=== PATIENT | female | born 1950 | race Caucasian/White ===

== ENCOUNTER → 2018-08-14 | Outpatient (CLI) | payer MEDICARE, BC ==
--- NOTE | 2018-08-15 18:16 | BD ---
EXAMINATION TYPE: Axial Bone Density DATE OF EXAM: 08/14/2018 COMPARISON: NONE CLINICAL HISTORY: 68-year-old female other specified disorders of bone density, postmenopausal screen ing Height: 63 Weight: 139.3 FRAX RISK QUESTIONS: Alcohol (3 or more units per day): no Family History (Parent hip fracture): no Glucocorticoids (More than 3mos): no (Ex: prednisone, prednisolone, methylprednisolone, dexamethasone, and hydrocortisone). History of Fracture in Adulthood: yes Secondary Osteoporosis: 1. Type 1 Diabetes: no 2. Hyperthyroidism: no 3. Menopause before 45: no 4. Malnutrition: no 5. Chronic liver disease: no Rheumatoid Arthritis: no Current Tobacco Use: no RISK FACTORS HISTORY OF: History of Wrist Fracture: When: Family History of Osteoporosis: no Active: yes Diet low in dairy products/other sources of calcium: yes Postmenopausal woman: angus age 45 Lost more than 2 inches in height since high school: no MEDICATIONS: Crestor, lisinopril, diuretic, folic acid, potassium Thyroid Medications: levothyroxine How Lon years Additional History: EXAM MEASUREMENTS: Bone mineral densitometry was performed using the [employer] System. Bone mineral density as measured about the Lumbar spine is: ----- L1-L4(G/cm2): 1.526 T Score Values are as follows: ----- L2: 1.8 ----- L3: 4.1 ----- L4: 4.0 ----- L1-L4: 2.9 Bone mineral density : baseline Bone mineral density about the R hip (g/cm2): 0.808 Bone mineral density about the L hip (g/cm2): 0.899 T Score values are as follows: -----R Neck: -1.7 -----L Neck: -1.0 -----R Total: -0.5 -----L Total: -0.1 Bone mineral density : baseline IMPRESSION: Osteopenia (T Score between -2.5 and -1). There is slightly increased risk of fracture and the patient may be considered for treatment. Re-Screen 2-5 years. NOTE: T-SCORE=SD OF THE YOUNG ADULT MEAN.
== END ==
LOC: RADBDWWP 12:57
PROVIDERS: ATTEND Family Medicine
DX: M85.80 Other specified disorders of bone density and structure, unspecified site (principal)
CPT/HCPCS: 77080

== ENCOUNTER → 2019-05-09 | Outpatient (CLI) | payer MEDICARE, BC ==
--- NOTE | 2019-05-10 12:52 | MM ---
Reason for exam: screening (asymptomatic). Last mammogram was performed 1 year and 2 months ago. History: Patient is postmenopausal. Family history of premenopausal breast cancer in paternal aunt at age 50. Reductions of both breasts, 1990. Physical Findings: A clinical breast exam by your physician is recommended on an annual basis and results should be correlated with mammographic findings. MG 3D Screening Mammo W/Cad Bilateral CC and MLO view(s) were taken. Prior study comparison: February 22, 2018, mammogram. December 30, 2016, mammogram. There are scattered fibroglandular densities. No significant changes when compared with prior studies. ASSESSMENT: Negative, BI-RAD 1 RECOMMENDATION: Routine screening mammogram of both breasts in 1 year.
== END | disposition home or self-care (01) ==
LOC: RADMAMWWP 13:11
PROVIDERS: ATTEND Family Medicine
DX: Z12.31 Encounter for screening mammogram for malignant neoplasm of breast (principal)
CPT/HCPCS: 77063; 77067

== ENCOUNTER → 2022-04-29 | Outpatient (CLI) | payer MEDICARE, BC ==
--- NOTE | 2022-05-01 12:13 | MM ---
Reason for Exam: Screening (asymptomatic). Last mammogram was performed 3 year(s) and 0 month(s) ago. Patient History: Menarche at age 14. First Full-Term at age 19. Postmenopausal. 1990, Bilateral Reduction. Paternal aunt had breast cancer, age 50. Risk Values: Alyson 5 year model risk: 1.4%. NCI Lifetime model risk: 3.8%. Prior Study Comparison: 12/30/2016 Screening Mammogram, Unknown. 02/22/2018 Screening Mammogram, Unknown. 05/09/2019 Bilateral Screening Mammogram, [facility]. Tissue Density: There are scattered fibroglandular densities. Findings: Analyzed By CAD. There is no suspicious group of microcalcifications or new suspicious mass in either breast. Overall Assessment: Negative, BI-RAD 1 Management: Screening Mammogram of both breasts in 1 year. 1. Patient should continue monthly self breast exams. 2. A clinical breast exam by your physician is recommended on an annual basis and results should be correlated with mammographic findings. A negative mammogram should not preclude additional follow-up of suspicious palpable abnormalities. Electronically signed and approved by: Wenceslao Gorman M.D. Radiologist
== END | disposition home or self-care (01) ==
LOC: RADMAMWWP 13:04
PROVIDERS: ATTEND Family Medicine
DX: Z12.31 Encounter for screening mammogram for malignant neoplasm of breast (principal); Z78.0 Asymptomatic menopausal state; Z80.3 Family history of malignant neoplasm of breast
CPT/HCPCS: 77063; 77067

== ENCOUNTER → 2022-04-29 | Outpatient (CLI) | payer MEDICARE, BC ==
--- NOTE | 2022-04-29 16:01 | XR ---
EXAMINATION TYPE: XR shoulder complete LT DATE OF EXAM: 04/29/2022 COMPARISON: NONE INDICATION: Shoulder pain TECHNIQUE: 3 views of the left shoulder FINDINGS: Moderate degenerative changes of the left acromioclavicular joint. [id number] degenerative you ges of the glenohumeral articulation with inferior glenoid osteophytosis. No definite acute fracture line identified. No humeral head dislocation or significant subluxation. N o signs of rotator cuff calcific tendinitis. Maintained acromiohumeral distance. IMPRESSION: Degenerative changes as described above.
--- NOTE | 2022-04-29 16:06 | XR ---
EXAMINATION TYPE: XR cervical spine comp DATE OF EXAM: 04/29/2022 COMPARISON: NONE INDICATION: Neck pain and radiculopathy TECHNIQUE: 5 views of the cervical spine FINDINGS: Retrolisthesis of C4 over C5 and C5 over C6. Severe degenerative changes of the cervical spine with m ultilevel opposing endplate osteophytosis, degenerated discs and uncovertebral osteoarthropathy, most evident at C4-5, C5-6 and C6-7 levels. Multiple facet osteoarthropathy and neural foramina stenosis are also noted. No definite vertebral leno dy collapse. Unremarkable prevertebral soft tissue. Unremarkable atlantoaxial articulations. IMPRESSION: Advanced degenerative changes of the cervical spine as detailed above. Recommend further MRI assessme nt.
== END | disposition home or self-care (01) ==
LOC: RADXRMAIN 11:48
PROVIDERS: ATTEND Family Medicine
DX: M19.012 Primary osteoarthritis, left shoulder (principal); M47.22 Other spondylosis with radiculopathy, cervical region; M99.71 Connective tissue and disc stenosis of intervertebral foramina of cervical region
CPT/HCPCS: 72050

== ENCOUNTER → 2022-05-26 | Outpatient (CLI) | payer MEDICARE, BC ==
--- NOTE | 2022-05-26 12:44 | MR ---
MRI CERVICAL SPINE: CLINICAL HISTORY: Cervical spine x-ray April 29, 2022 TECHNIQUE: Multiplanar, multisequence imaging of the cervical spine is performed without IV contrast. COMPARISON: Cervical spine x-ray April 29, 2022. FINDINGS: Sagittal images of the cervical spine show the craniocervical junction to appear within nor mal limits. There is focus of increased signal in the cervical spinal cord at C4-C5 level sagittal im age 9. There is grade 1 retrolisthesis C4 on C5 and C5 on C6. Moderate to severe spurring and disc sp elvia narrowing at these levels is present. Mild to moderate disc space narrowing and moderate spurring C6-C7 level. The vertebral body heights are normal. Heterogeneous Modic type I and III degenerative changes mid cervical spine are present. Axial images at C2-C3 level shows uncovertebral facet degenerative changes causing asymmetric moderat e left-sided neural foraminal narrowing. Axial images at C3-C4 level shows broad-based left paracentral spur disc complex effacing the anterol ateral thecal sac with mild to moderate bilateral neural foraminal narrowing. Axial images at C4-C5 level shows spondylolisthesis with posterior spur disc complex effacing anterio r thecal sac. The ventral surface of the left spinal cord and uncovertebral facet degenerative change s. There is advanced bilateral neural foraminal narrowing. There is some increased cord signal centra lly axial image 24. Axial images at C5-C6 levels show subtle spondylolisthesis and mild right paracentral disc protrusion , there is uncovertebral facet degenerative changes causing moderate to advanced bilateral neural for aminal narrowing. Axial images at C6-C7 level show focal central disc protrusion effacing anterior thecal sac, bilatera l neural foramina are patent. Axial images at C7-T1 level appear within normal limits. IMPRESSION: Multilevel spondylolisthesis and degenerative changes in the cervical spine as detailed a warren, findings most prominent at the C4-C5 level where there is some abnormal cord signal suggesting edema. Advise neurosurgical referral.
== END | disposition home or self-care (01) ==
LOC: RADMRIMAIN 10:29
PROVIDERS: ATTEND Family Medicine
DX: M43.12 Spondylolisthesis, cervical region (principal); M50.323 Other cervical disc degeneration at C6-C7 level
CPT/HCPCS: 72141

== ENCOUNTER → 2022-10-05 | Outpatient (CLI) | payer MEDICARE, BC ==
--- NOTE | 2022-10-05 15:27 | XR ---
EXAMINATION TYPE: XR tibia fibula RT DATE OF EXAM: 10/05/2022 3:15 PM INDICATION: Patient age:Female; 72 years old; Reason for study: M79.604 Pain in Rt Leg; PHH. COMPARISON: None TECHNIQUE: The right tibia/fibula was examined in AP and lateral projections. FINDINGS: No evidence of any acute osseous pathology, joint dislocation, or soft tissue swelling is n oted. Mild medial and lateral tibiofemoral joint space narrowing with marginal spurring. Ankle mortis e appears intact. No aggressive osseous lesion. Posterior calcaneal enthesophyte. IMPRESSION: 1. No evidence of acute fracture or aggressive osseous lesion. 2. Mild osteoarthritic changes of the knee.
== END | disposition home or self-care (01) ==
LOC: RADXRMAIN 15:01
PROVIDERS: ATTEND Family Medicine
DX: M17.11 Unilateral primary osteoarthritis, right knee (principal); M79.604 Pain in right leg

== ENCOUNTER → 2023-05-23 | Outpatient (CLI) | payer MEDICARE, BC ==
--- NOTE | 2023-05-24 19:51 | MM ---
Reason for Exam: Screening (asymptomatic). Last mammogram was performed 1 year(s) and 1 month(s) ago. Patient History: Menarche at age 14. First Full-Term at age 19. Postmenopausal. 1990, Bilateral Reduction. Paternal aunt had breast cancer, age 50. Risk Values: Alyson 5 year model risk: 1.4%. NCI Lifetime model risk: 3.3%. Prior Study Comparison: 02/22/2018 Screening Mammogram, Unknown. 05/09/2019 Bilateral Screening Mammogram, [facility]. 04/29/2022 Bilateral MG 3D screening mammo w/cad, [facility]. Tissue Density: There are scattered fibroglandular densities. Findings: Analyzed By CAD. There is no suspicious group of microcalcifications or new suspicious mass in either breast. Overall Assessment: Negative, BI-RAD 1 Management: Screening Mammogram of both breasts in 1 year. . Patient should continue monthly self-breast exams. A clinical breast exam by your physician is recommended on an annual basis. This exam should not preclude additional follow-up of suspicious palpable abnormalities. Note on Alyson scores and lifetime risk: 1. A Alyson score greater than 3% is considered moderate risk. If this is the case, consider specialist referral to assess eligibility for a risk reducing agent. 2. If overall lifetime risk for the development of breast cancer is 20% or higher, the patient may qualify for future screening with alternating mammogram and breast MRI. Electronically signed and approved by: Wenceslao Gorman M.D. Radiologist
== END | disposition home or self-care (01) ==
LOC: RADMAMWWP 15:02
PROVIDERS: ATTEND Family Medicine
DX: Z12.31 Encounter for screening mammogram for malignant neoplasm of breast (principal); Z78.0 Asymptomatic menopausal state; Z80.3 Family history of malignant neoplasm of breast
CPT/HCPCS: 77063; 77067

== ENCOUNTER → 2023-06-27 | Outpatient (CLI) | payer MEDICARE, BC ==
--- NOTE | 2023-06-27 14:32 | US ---
EXAMINATION TYPE: US venous doppler duplex LE RT DATE OF EXAM: 06/27/2023 2:16 PM COMPARISON: NONE CLINICAL INDICATION: Female, 73 years old with history of M79.661 PAIN; right calf pain SIDE PERFORMED: Right TECHNIQUE: The lower extremity deep venous system is examined utilizing real time linear array sonog kevin with graded compression, doppler sonography and color-flow sonography. VESSELS IMAGED: Common Femoral Vein Deep Femoral Vein Greater Saphenous Vein * Femoral Vein Popliteal Vein Small Saphenous Vein * Proximal Calf Veins (* superficial vessels) Right Leg: Appears negative for DVT IMPRESSION: Grayscale, color doppler, spectral doppler imaging performed of the deep veins of the lo wer extremities. There is normal flow, compressibility, vascular waveforms.
--- NOTE | 2023-06-27 15:09 | BD ---
EXAMINATION TYPE: Axial Bone Density DATE OF EXAM: 06/27/2023 CLINICAL HISTORY: 73 years old Female. ICD-10 CODE: M85.80 OT DISRD OF BONE DENSITY Height: 62 Weight: 134.2 FRAX RISK QUESTIONS: Alcohol (3 or more units per day): no Family History (Parent hip fracture): no Glucocorticoids (More than 3mos): no (Ex: prednisone, prednisolone, methylprednisolone, dexamethasone, and hydrocortisone). History of Fracture in Adulthood: yes Secondary Osteoporosis: 1. Type 1 Diabetes: no 2. Hyperthyroidism: no 3. Menopause before 45: no 4. Malnutrition: no 5. Chronic liver disease: no Rheumatoid Arthritis: no Current Tobacco Use: no RISK FACTORS HISTORY OF: History of Wrist Fracture: right When: age 56 Family History of Osteoporosis: no Active: yes Diet low in dairy products/other sources of calcium: yes Postmenopausal woman: yes Lost more than 2 inches in height since high school: no MEDICATIONS: Thyroid Medications: levothyroxine How Lon years Additional History: EXAM MEASUREMENTS: Bone mineral densitometry was performed using the [employer] System. Bone mineral density as measured about the Lumbar spine is: ----- L1-L4(G/cm2): 1.467 T Score Values are as follows: ----- L1: 0.8 ----- L2: 16 ----- L3: 3.5 ----- L4: 3.4 ----- L1-L4: 2.4 Z Score Values are as follows: ----- L1: 2.7 ----- L2: 3.5 ----- L3: 5.3 ----- L4: 5.3 ----- L1-L4: 4.3 Bone mineral density has: decreased -3.9 % since study of: 08.14.2018 Bone mineral density about the R hip (g/cm2): 0.917 Bone mineral density about the L hip (g/cm2): 0.976 T Score values are as follows: -----R Neck: -1.5 -----L Neck: -1.3 -----R Total: -0.7 -----L Total: -0.2 Z Score values are as follows: -----R Neck: 0.5 -----L Neck: 0.7 -----R Total: 1.1 -----L Total: 1.5 Bone mineral density has: decreased -2.5 % since study of: 2018 FRAX%s: The graph provided illustrates a 17.0 % chance for a major osteoporotic fx and a 3.1% chance for the hips probability for fx in 10 years time. IMPRESSION: Osteopenia (T Score between -2.5 and -1). There is slightly increased risk of fracture and the patient may be considered for treatment. Re-Screen 2-5 years. NOTE: T-SCORE=SD OF THE YOUNG ADULT MEAN.
== END | disposition home or self-care (01) ==
LOC: RADUSWWP 13:23
PROVIDERS: ATTEND Family Medicine
DX: M85.89 Other specified disorders of bone density and structure, multiple sites (principal); M79.661 Pain in right lower leg
CPT/HCPCS: 77080

== ENCOUNTER → 2023-10-19 | Outpatient (CLI) | payer MEDICARE, BC ==
--- NOTE | 2023-10-19 10:37 | XR ---
EXAMINATION TYPE: XR shoulder complete RT DATE OF EXAM: 10/19/2023 CLINICAL HISTORY: Pain TECHNIQUE: Three views of the right shoulder are obtained. COMPARISON: None. FINDINGS: There is no acute fracture/dislocation evident in the right shoulder. [id number] alison rowing at the acromioclavicular joint. Glenohumeral joint is maintained. The visualized ribs are int act and unremarkable. IMPRESSION: As above.
== END | disposition home or self-care (01) ==
LOC: RADXRMAIN 10:00
PROVIDERS: ATTEND Family Medicine
DX: M25.511 Pain in right shoulder (principal)

== ENCOUNTER → 2024-05-24 | Outpatient (CLI) | payer MEDICARE ==
--- NOTE | 2024-05-29 16:30 | MM ---
Reason for Exam: Screening (asymptomatic). Last screening mammogram was performed 12 month(s) ago. Patient History: Menarche at age 14. First Full-Term at age 19. Postmenopausal. 1989, Bilateral Reduction. Paternal aunt had breast cancer, age 50. Risk Values: Alyson 5 year model risk: 1.4%. NCI Lifetime model risk: 3.1%. Prior Study Comparison: 05/09/2019 Bilateral Screening Mammogram, [facility]. 04/29/2022 Bilateral MG 3D screening mammo w/cad, [facility]. 05/23/2023 Bilateral MG 3D screening mammo w/cad, [facility]. Tissue Density: There are scattered areas of fibroglandular density. Findings: Analyzed By CAD. The pattern is symmetrical. No significant change No suspicious groups of microcalcifications, spiculated or lobular masses, architectural distortion or other secondary signs of malignancy are mammographically apparent. Overall Assessment: Benign, BI-RAD 2 Management: Screening Mammogram of both breasts in 1 year. A negative mammogram report should not preclude additional follow up of suspicious palpable abnormalities. Patient should continue monthly self breast exam. A clinical breast exam by your physician is recommended on an annual basis and results should be correlated with mammographic findings. Note on Alyson scores and lifetime risk: 1. A Alyson score greater than 3% is considered moderate risk. If this is the case, consider specialist referral to assess eligibility for a risk reducing agent. 2. If overall lifetime risk for the development of breast cancer is 20% or higher, the patient may qualify for future screening with alternating mammogram and breast MRI. Electronically signed and approved by: Rizwan Victoria D.O. Radiologis
== END | disposition home or self-care (01) ==
LOC: RADMAMWWP 13:27
PROVIDERS: ATTEND Family Medicine
DX: Z12.31 Encounter for screening mammogram for malignant neoplasm of breast (principal); Z78.0 Asymptomatic menopausal state; Z80.3 Family history of malignant neoplasm of breast
CPT/HCPCS: 77063; 77067

== ENCOUNTER → 2024-06-12 | Outpatient (CLI) | payer MEDICARE ==
[2024-06-12 13:55] VITALS: BP 117/68; PULSE 69; RESP 16; TEMP 98.4
--- NOTE | 2024-06-12 14:35 | P.HPOB ---
History of Present Illness H&P Date: 06/12/24 Chief Complaint: The patient is here for her routine gynecologic exam This is a 74-year-old with an LMP of 1998. The patient is here to establish with this office. It has been about 14 years since her last pelvic exam. She is without gynecologic complaints and denies any postmenopausal bleeding. Her last mammogram was on 05/24/2024 and was benign. Review of Systems The patient's weight has been stable over the last year. She denies r espiratory, cardiac, or G.I. problems. Past Medical History Past Medical History: Hyperlipidemia, Hypertension, Thyroid Disorder Additional Past Medical History / Comment(s): Hypothyroid. Osteopenia. 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 History of Any Multi-Drug Resistant Organisms: None Reported Past Surgical History: Breast Surgery, Cholecystectomy, Orthopedic Surgery Additional Past Surgical History / Comment(s): Breast reduction surgery. Foot surgery. Colonoscopy 2009. Past Anesthesia/Blood Transfusion Reactions: Motion Sickness, Postoperative Nausea & Vomiting (PONV) Past Psychological History: No Psychological Hx Reported (PHQ-2 questionaire was given and she scores 0. This is a negative screen for depression.) Smoking Status: Former smoker (Smoked in her 20s then quit.) Past Alcohol Use History: Occasional (1-2 drinks every 2 weeks.) Additional Past Alcohol Use History / Comment(s): Quit smoking in her 20s. Past Drug Use History: None Reported Additional History: She has been a since 2010 and is not sexually active. She is retired. She spends part of the year in [place]. - Past Family History Mother Family Medical History: Hypertension Additional Family Medical History / Comment(s): .Maternal grandmother had an [place]. Father Additional Family Medical History / Comment(s): Rheumatic fever as a child. from ARDS. Paternal grandmother had oral cancer. Paternal aunt had breast cancer. Sister(s) Family Medical History: Coronary Artery Disease (CAD) Medications and Allergies Home Medications Medication Instructions Recorded Confirmed Type Levothyroxine Sodium [Synthroid] 100 mcg PO DAILY 06/12/24 06/12/24 History Triamterene/Hydrochlorothiazid 1 cap PO DAILY 06/12/24 06/12/24 History [Triamterene-Hctz 37.5-25 mg Cp] lisinopriL [Prinivil] 20 mg PO DAILY 06/12/24 06/12/24 History Allergies Allergy/AdvReac Type Severity Reaction Status Date / Time codeine Allergy Nausea & Unverified 06/12/24 13:34 Vomiting Penicillins Allergy Anaphylaxis Unverified 06/12/24 13:34 Exam Vital Signs Temp Pulse Resp BP Pulse Ox 06/12/24 13:40 98.4 F 69 16 117/68 99 Intake and Output 06/11/24 06/12/24 06/12/24 22:59 06:59 14:59 Other: Weight 59.874 kg Height 5 feet 1 inch, weight 132 pounds, BMI 24.9. This is a well-developed well-nourished white female who is alert and oriented times 3 in no acute distress. HEENT: Within normal limits. NECK: Supple without mass or thyromegaly. CHEST AND LUNGS: Clear to auscultation. HEART: Regular rate and rhythm. BREASTS: Are without mass or discharge. AXILLARY EXAM: Negative for adenopathy. BACK: Negative for CVA tenderness. ABDOMEN: Soft, nontender, without palpable masses. PELVIC EXAM: Normal external genitalia with mild to moderate atrophy. Cervix and vagina appear normal with mild to moderate atrophy. There is no unusual discharge. There is no evidence of prolapse. The uterus is midposition, nongravid size and nontender. There are no palpable adnexal masses or tenderness. RECTAL EXAM: Rectovaginal exam is negative for mass or tenderness and is negative for occult blood. EXTREMITIES: Nontender. IMPRESSION: 1. 74-year-old menopausal female with normal gynecologic exam. 2. History of osteopenia. 3. Inadequate cervical screening during the past 14 years. PLAN: 1. Pap smear cotest was performed. If this is negative we will repeated in approximately 5 years and if that is also negative, consider discontinuing Pap smears at that time. 2. Self breast awareness was discussed with the patient. We have also discussed symptoms associated with inflammatory breast cancer. 3. Screening mammogram was done on 05/24/2024 and was benign. This will be repeated after 1 year. 4. Osteoporosis prevention was discussed. I have stressed the importance of adequate calcium, vitamin D and regular exercise. Recommended amounts of calcium and vitamin D were also discussed. We will plan on repeating the bone density test in approximately 1 to 2 years since her last one was on 06/27/2023. 5. PHQ-2 questionaire was given and she scores 0. This is a negative screen for depression. 6. The patient had Cologuard testing done last year. She will continue to do colorectal cancer screening through her PCP. 7. She was advised to return in one year for her annual well woman exam.
== END ==
LOC: WWCWWP 13:13
PROVIDERS: ATTEND Obstetrics & Gynecology
DX: Z01.419 Encounter for gynecological examination (general) (routine) without abnormal findings (principal); M85.80 Other specified disorders of bone density and structure, unspecified site; Z78.0 Asymptomatic menopausal state; Z80.3 Family history of malignant neoplasm of breast; Z88.0 Allergy status to penicillin; Z88.5 Allergy status to narcotic agent; Z87.891 Personal history of nicotine dependence